=== PATIENT | male | born 1940 | race Caucasian/White ===

== ENCOUNTER 2018-08-16 06:14 | Day surgery (SDC) | payer MEDICARE ==
[2018-08-15 13:37] VITALS: BMI 24.3
[2018-08-16] MEDS ORDERED: Midazolam HCl 2 mg/2 ml Vial ONE ×2 (06:30→07:11)
[2018-08-16] MEDS ORDERED: Fentanyl 100 MCG/2 ML VIAL ONE (06:30)
[2018-08-16] MEDS ORDERED: Iothalamate Meglumine 60% 50 ML VIAL FS ONE (06:43)
[2018-08-16 07:03] LABS: #Eosinphils 0.1 thou/uL (0.0-0.7); #Lymphocytes 1.4 thou/uL (1.20-3.40); #Monocytes 0.8 thou/uL (0.11-0.59); #Neutrophils 3.8 thou/uL (1.40-6.50); %Basophils 0.3 % (0.0-1.0); %Lymphocytes 22.5 % (21.0-51.0); %Neutrophils 62.1 % (42.0-75.0); Hemoglobin 15.4 g/dL (14.0-18.0); Mean Corpuscular HGB CONC 34.7 g/dL (32.0-36.0); Mean Corpuscular Hemoglobin 31.2 pg (27.0-31.0); Mean Corpuscular Volume 89.9 fL (78.0-98.0); Mean Platelet Volume 7.5 fL (7.4-10.4); Platelet Count 200 thou/uL (130-400); RBC Distribution Width 11.5 % (11.5-14.5); Red Blood Cell (RBC) Count 4.94 mill/uL (4.70-6.10); White Blood Cell (WBC) Count 6.1 thou/uL (4.8-10.8)
[2018-08-16 07:09] LABS: Platelet Count 200 thou/uL (130-400)
[2018-08-16 07:19] LABS: Anion Gap 12 mmol/L (10-20); BUN (Urea Nitrogen) 16 mg/dL (8.4-25.7); Calc. Creatinine Clearance 55 mL/min (70-130); Calcium 9.6 mg/dL (7.8-10.44); Carbon Dioxide 22 mmol/L (23-31); Chloride 105 mmol/L (98-107); EPI 143 SEC (67-199); Estimated GFR-MDRD 61; Glucose 97 mg/dL (83-110); Potassium 4.4 mmol/L (3.5-5.1); Sodium 135 mmol/L (136-145)
[2018-08-16 07:21] LABS: INR-International Normal Ratio 1.1; PTT 30.8 SEC (22.9-36.1); Prothrombin Time 13.7 SEC (12.0-14.7)
--- NOTE | 2018-08-16 07:36 | RAD ---
XR Abdomen 1 View/KUB History: Renal stone. Ureteral stone. Comparison: CT abdomen and pelvis August 10, 2018 Findings: The left ureteral stone which is at the level of L3 on the CT examination has refluxed back into the inferior calyx left kidney. Impression: Reflux of the left ureteral stone into the inferior calyx left kidney.
--- NOTE | 2018-08-16 11:22 | OP ---
DATE OF PROCEDURE: 08/16/2018 PREOPERATIVE DIAGNOSIS: Left renal stones. POSTOPERATIVE DIAGNOSIS: Left renal stones. PROCEDURE PERFORMED: Left extracorporeal shock wave lithotripsy. ANESTHETIC: General. EBL: Not recorded. FINDINGS: There were two stones adjacent to each other in the lower pole, each about 6 mm in size. They were treated with 2500 shocks at maximum kv level of 4. They appeared to fragment well and for this reason, a stent was not placed. OPERATIVE INDICATIONS: This is a 77-year-old white male, who I have followed for a number of years. He had shockwave with good result, a few years ago for stones. He was seen just recently and one of the stones up in his kidney that we have been following had moved down into the ureter. He was not having any significant pain from this. This was just found on a followup x-ray. It was confirmed on a noncontrast CAT scan. He elected to get the stone treated as it was sitting in his mid ureter and he did have some hydronephrosis related to it. He is coming in today for that. His platelet function assay and lab work were normal. On his preop KUB today, the stone that was seen in the ureter looks like it moved back up in the kidney and it was adjacent to another 6 mm stone in the lower pole, so we went ahead and treated both of these. DESCRIPTION OF PROCEDURE: Obtained written and verbal consent from the patient. He was taken to the operating suite. He was placed in a supine position on the treatment table. PlexiPulses were placed on his lower extremities and turned on. He was coupled to the lithotripsy unit. The stones were placed in his treatment focal point. The one more medial being treated first and then one more laterally after that. He was coupled with the lithotripsy unit and the shockwave therapy was commenced. After about 1200 shocks, it appeared that a more medial stone had fragmented well and we repositioned to treat the one a little bit further lateral that was treated with 1200 shocks and then the remaining 100 shocks were used to treat some of the smaller fragments that were broke up as a results of this. There were no sizable enough fragments at that point remaining and it appeared that the stent was not necessary. At this point, the procedure was terminated. He was awakened. He was extubated. He was taken by stretcher to the recovery room. Job ID: [id number]
== END 2018-08-16 12:20 | disposition home or self-care (01) ==
LOC: SDC 06:14
PROVIDERS: ATTEND Urology
PROC: 0TF4XZZ Fragmentation in Left Kidney Pelvis, External Approach (ICD-10-PCS; principal; 2018-08-16)
DX: N20.0 Calculus of kidney (principal); M19.90 Unspecified osteoarthritis, unspecified site; I25.10 Atherosclerotic heart disease of native coronary artery without angina pectoris; Z95.1 Presence of aortocoronary bypass graft; Z79.82 Long term (current) use of aspirin; Z79.899 Other long term (current) drug therapy
CPT/HCPCS: 36415; 74018; 80048; 85025; 85576; 85610; 85730; 93005; 93010; J2250; J3010

== ENCOUNTER 2021-03-26 10:14 | Outpatient (CLI) | payer MEDICARE | END 2021-03-26 10:15 | disposition home or self-care (01) | LOC: BICULT 10:14 | PROVIDERS: ATTEND Family Medicine | DX: R10.11 Right upper quadrant pain (principal); K76.89 Other specified diseases of liver; N20.0 Calculus of kidney | CPT/HCPCS: 76700 ==